=== PATIENT | female | born 1970 | race Caucasian/White ===

== ENCOUNTER 2018-06-28 08:05 | Day surgery (SDC) | payer OTHER ==
[~2018-06-28] VITALS: Ht 170.2 cm; Wt 88.0 kg
[~2018-06-28 08:05] MED LIST: CEFAZOLIN 1 GM IVPB PREMIX 50 ML IV ONE
[2018-06-28] MEDS ORDERED: LR 1,000 ML IV.SOLN IV ONE (10:15)
[2018-06-28] MEDS ORDERED: fentaNYL CITRATE/PF 100 MCG/2 ML AMP IVP ONE (10:15)
[2018-06-28] MEDS ORDERED: NS 1000 ML IV.SOLN IV ONE (10:15)
[2018-06-28] MEDS ORDERED: MIDAZOLAM HCL 5 MG/5 ML VIAL IVP ONE (10:15)
[2018-06-28] MEDS ORDERED: SEVOFLURANE 15 MIN GAS INH ONE (10:15)
[2018-06-28] MEDS ORDERED: ATROPINE SULFATE 0.4 MG/ML VIAL IVP ONE (10:15)
[2018-06-28] MEDS ORDERED: ONDANSETRON HCL 4 MG/2 ML VIAL IVP ONE (10:15)
[2018-06-28] MEDS ORDERED: PROPOFOL 200MG/ 20ML VIAL (DIPRIVAN) IV ONE (10:15)
[2018-06-28] MEDS ORDERED: NS IRRIG SOLN 1000 ML IR ONE (10:15)
[2018-06-28] MEDS ORDERED: ROCURONIUM BROMIDE 10 MG/ML (ZEMURON) IV ONE (10:15)
[2018-06-28] MEDS ORDERED: NEOSTIGMINE METHYLSULFATE 1 MG/ML, 10 ML VIAL IVP ONE (10:15)
[2018-06-28] MEDS ORDERED: OXYCODONE/ACETAMINOPHEN 5-325 TABLET PO PRN (11:00)
[2018-06-28] MEDS ORDERED: HYDROcodone/ACETAMIN 5-325 MG TAB (NORCO/ VICODIN) PO PRN (11:00)
[2018-06-28] MEDS ORDERED: ONDANSETRON HCL 4 MG/2 ML VIAL IVP PRN (11:00)
[2018-06-28] MEDS ORDERED: MORPHINE 4 MG/ML INJ. SYRINGE ONE (11:17)
[2018-06-28] MEDS ORDERED: MORPHINE 4 MG/ML INJ. SYRINGE IVP ONE (11:30)
[2018-06-28 11:45] VITALS: BP_SYST 116
== END 2018-06-28 13:10 | disposition home or self-care (01) ==
LOC: SDS 08:05 → SMU 08:07 → SDS 13:10
PROVIDERS: ATTEND Specialist
DX: N84.0 Polyp of corpus uteri (principal); N92.0 Excessive and frequent menstruation with regular cycle; K21.9 Gastro-esophageal reflux disease without esophagitis; Z98.890 Other specified postprocedural states; E03.9 Hypothyroidism, unspecified; Z79.899 Other long term (current) drug therapy; Z68.30 Body mass index [BMI] 30.0-30.9, adult; G43.111 Migraine with aura, intractable, with status migrainosus; E66.01 Morbid (severe) obesity due to excess calories
CPT/HCPCS: 58563; 88305; J0690; J2270; J0461; J2250; J2405; J2704; J2710; J3010; J7030; J7120